=== PATIENT | female | born 1995 | race Two or more races ===

== ENCOUNTER 2025-06-14 13:15 | Emergency (ER) | payer SELFPAY ==
[~2025-06-14] VITALS: Ht 154.9 cm; Wt 60.0 kg
[2025-06-14 13:20] VITALS: TEMP 97.8
--- NOTE | 2025-06-14 15:28 | DVH ---
CLINICAL INFORMATION: 29 years old, Female; head injury. TECHNIQUE: Axial imaging was obtained through the brain without contrast. Coronal and sagittal reform atted images were obtained, reviewed, and stored. Images were reviewed in brain and bone windows. Al l CT scans at this medical facility are performed using dose modulation techniques as appropriate to a performed exam including the following: Automated exposure control was utilized; adjustment of the MA and/or KV according to patient size; and use of iterative reconstruction technique. CTDIvol = 73.5 9 mGy DLP = 1596.59 mGy-cm COMPARISON: None FINDINGS: There is no acute intracranial hemorrhage. No mass effect or midline shift. Encephalomalaci a in the right frontal lobe adjacent to a right parietal craniotomy site. Possible small surgical cli ps within the area of encephalomalacia in the right frontal lobe. The ventricles and sulci are within normal limits in size for age. Basal cisterns are patent. No acute calvarial fracture visualized. P aranasal sinuses and mastoid air cells are clear. IMPRESSION: 1. No CT evidence of acute intracranial abnormality. 2. Encephalomalacia in the right frontal lobe adjacent to a right parietal craniotomy site. Correlate with surgical history.
--- NOTE | 2025-06-14 15:32 | DVH ---
EXAM: CT CERVICAL WITHOUT CONTRAST INDICATION: head injury EXAM DATE: 06/14/2025 02:46 PM COMPARISON: None TECHNIQUE: Multiple axial CT images of the cervical spine were obtained using bone algorithm. Axial a nd coronal reformatting was done. Bone and soft tissue windows were reviewed. Radiation Dose Information: CT Dose: CTDI volume is 20.1 mGy. Dose-length product is 630 mGy*cm FINDINGS: The cervical alignment is intact. No acute cervical spine fracture is identified. The vertebral body heights are intact. No suspicious osseous lesions are identified. No significant degenerative changes are identified. There is no prevertebral soft tissue swelling. IMPRESSION: 1. No evidence of acute cervical spine fracture or traumatic malalignment. All CT scans at this medical facility are performed using dose modulation techniques as appropriate t o a performed exam including the following: Automated exposure control was utilized; adjustment of th e MA and/or KV according to patient size; and use of iterative reconstruction technique.
[2025-06-14] MEDS ORDERED: CYCL-837 PO (15:39)
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
[2025-06-14 15:52] VITALS: BP 96/58; PULSE 60; RESP 18; O2SAT 98
== END 2025-06-14 15:51 | disposition home or self-care (01) ==
LOC: EDBD 13:15 → ER 13:15
DX: S09.8XXA Other specified injuries of head, initial encounter (principal); F07.81 Postconcussional syndrome; H53.8 Other visual disturbances; Z98.890 Other specified postprocedural states; Y04.0XXA Assault by unarmed brawl or fight, initial encounter; Y93.89 Activity, other specified; Y92.89 Other specified places as the place of occurrence of the external cause; Y99.8 Other external cause status
CPT/HCPCS: 70450; 72125; 81025